=== PATIENT | male | born 1995 | race Caucasian/White ===

== ENCOUNTER 2020-04-14 13:58 | Emergency (ER) | payer SELFPAY ==
--- NOTE | 2020-04-14 14:05 | ED_ITS ---
HPI - Skin/Abscess/Foreign Bdy General: Chief complaint: Skin/Abscess/Foreign Body Stated complaint: rash Time Seen by Provider: 04/14/20 14:05 Source: patient Mode of arrival: ambulatory Limitations: no limitations History of Present Illness: HPI narrative: Patient comes in for rash to hands and feet. Reports bumps that are fluid-filled. Patient appears well. Patient denies any contact to abnormal grasses weeds or substances. Patient appears in no pain MD complaint: rash Review of Systems 2 General: Reports: 10 or more systems reviewed and unremarkable except in HPI and below Skin/Breast: Reports: rash and pruritus PFS ED PFSH: Social History (Updated 01/12/20 @ 13:56 by Sanjay Hanna LPN) Smoking and tobacco status: current every day smoker pipe Years smoked pipe: 5 Pipe Details: 100 / week Quit status (tobacco): has tried quititng Number of times tried to quit tobacco: 0 Second hand smoke exposure: Yes Smoking risk assessment/counseling performed?: Yes Tobacco counseling given: counseling >3 minutes Physical Exam Const: COMMON NORMALS: no acute distress and patient oriented x3 GENERAL APPEARANCE: cooperative HENMT: COMMON NORMALS: normocephalic and Normal external nose present HEAD & SCALP: normal to inspection and normocephalic NOSE: Normal external nose present Eye: GENERAL EYE: appearance normal, both eyes and all related structures Neck/C-Spine: COMMON NORMALS: full ROM Chest: COMMONS NORMALS: normal inspection of the chest Resp: COMMON NORMALS: normal respiratory effort EFFORT & INSPECTION: Yes able to speak in complete sentences Cardio: COMMON NORMALS: regular rate and regular rhythm RATE: regular rate RHYTHM: regular rhythm GI: COMMON NORMALS: non-tender Back/Pelvis: COMMON NORMALS: thoracic and lumbar spine normal to inspection Extremity: COMMON NORMALS: normal to inspection Neuro: COMMON NORMALS: patient oriented x3 and moves all extremities Psych: COMMON NORMALS: mental status grossly normal and cooperative Skin: NARRATIVE SKIN EXAM: Small vesicle-like rash noted to the webbing and digits of the hand, patient reports similar lesions to the feet. Course Vital Signs: Vital signs: Vital Signs Temperature 98.5 F 04/14/20 14:10 Pulse Rate 104 H 04/14/20 14:10 Respiratory Rate 18 04/14/20 14:10 Blood Pressure 122/91 04/14/20 14:10 Pulse Oximetry 96 04/14/20 14:10 MDM - Skin/Abscess/Foreign Bdy MDM Narrative: Medical decision making narrative: Patient comes in today for complaints of itching and vesicular lesions to the hands and feet. Exam otherwise is normal. Differential diagnosis includes contact dermatitis, dyshidrosis eczema, herpes zoster, herpes simplex. Exam and history gives us the diagnosis for dyshidrosis eczema. Reviewed exam with patient with recommendations for treatment. Patient reported understanding of care plan and need for follow-up. Discharge Plan Discharge Patient Disposition: Home, Self-Care Clinical Impression: Dyshidrosis [pompholyx] Condition: Stable Prescriptions: New triamcinolone acetonide 0.1 % cream 1 applic TOPICAL BID Qty: 80 RF: 0 No Action risperidone [Risperdal] 1 mg tablet 1 mg PO DAILY Qty: 30 RF: 1 Discharge Orders: Discharge Order (Routine); Ordered 04/14/20 Ordered By: Drake Viveros Discharge Diet: Usual diet Discharge Activity: Increase activity as tolerated Patient Instructions: Eczema (ED) Activity Restrictions/Additional Instructions: Use steroid cream twice a day until resolution of symptoms. Drink plenty of water. You may use Benadryl as needed for itching. Follow-up with primary care in 1 week for recheck. Return to the ER for high fever or worsening symptoms. Coding Level of Care Code ED Hole Puncher Strap for Gisell Fwyon Exam Comprehensive
[2020-04-14 14:10] VITALS: BP 122/91; PULSE 104; RESP 18; TEMP 36.9; O2SAT 96; BMI 28.0
[2020-04-14 14:46] VITALS: BP 126/80; PULSE 105; RESP 16; O2SAT 96
== END 2020-04-14 14:50 | disposition home or self-care (01) ==
LOC: ER 15:08
PROVIDERS: Emergency Provider Nurse Practitioner Family
DX: L30.1 Dyshidrosis [pompholyx] (principal); F17.210 Nicotine dependence, cigarettes, uncomplicated
CPT/HCPCS: 12345; 99282

== ENCOUNTER 2020-05-08 12:57 | Emergency (ER) | payer SELFPAY ==
[2020-05-08 12:59] VITALS: BP 131/90; PULSE 117; RESP 18; TEMP 36.3; O2SAT 97; BMI 28.0
--- NOTE | 2020-05-08 13:09 | W.ED.SKABFB ---
HPI - Skin/Abscess/Foreign Bdy General: Chief complaint: Skin/Abscess/Foreign Body Stated complaint: possible spider bite Time Seen by Provider: 05/08/20 13:03 History of Present Illness: HPI narrative: Redness left elbow 1 day MD complaint: insect bite/sting Onset (ago): day(s) Tetanus up to date: yes Location: LUE Severity: mild Associated symptoms: Deny chills, fever(s), nausea or vomiting Review of Systems Const: Denies: fever(s), chills or body aches Eyes: Denies: change in vision or blurry vision ENMT: Denies: throat pain or nasal congestion Card: Denies: chest pain or dyspnea on exertion Resp: Denies: dyspnea, productive cough or non-productive cough GI: Denies: abdominal pain, nausea or vomiting : Denies: difficulty urinating Musc: Denies: extremity pain Skin/Breast: Reports: erythema; Denies: rash Neuro: Denies: headache(s) Psych: Denies: anxiety or depression [place]ato/Lymph: Denies: easy bruising PFS ED PFSH: Social History (Updated 01/12/20 @ 13:56 by Sanjay Hanna LPN) Smoking and tobacco status: current every day smoker pipe Years smoked pipe: 5 Pipe Details: 100 / week Quit status (tobacco): has tried quititng Number of times tried to quit tobacco: 0 Second hand smoke exposure: Yes Smoking risk assessment/counseling performed?: Yes Tobacco counseling given: counseling >3 minutes Physical Exam Const: COMMON NORMALS: no acute distress, average body habitus and patient oriented x3 HENMT: COMMON NORMALS: normocephalic HEAD & SCALP: normal to inspection and normocephalic FACE & SINUS: normal facial exam Eye: COMMON NORMALS: conjunctivae normal GENERAL EYE: appearance normal, both eyes and all related structures CONJUNCTIVA: Yes conjunctivae normal Neck/C-Spine: COMMON NORMALS: no JVD Chest: COMMONS NORMALS: normal inspection of the chest Resp: COMMON NORMALS: normal respiratory effort and clear to auscultation bilaterally AUSCULTATION: clear to auscultation bilaterally Cardio: COMMON NORMALS: no JVD, regular rate and regular rhythm RATE: regular rate RHYTHM: regular rhythm GI: COMMON NORMALS: Normal to inspection, nondistended, normoactive bowel sounds present Extremity: COMMON NORMALS: normal to inspection and full ROM NARRATIVE EXTREMITY EXAM: Has erythema to left elbow and a central area that is draining a little bit Neuro: COMMON NORMALS: patient oriented x3 Course Vital Signs: Vital signs: Vital Signs Temperature 97.3 F L 05/08/20 12:59 Pulse Rate 117 H 05/08/20 12:59 Respiratory Rate 18 05/08/20 12:59 Blood Pressure 131/90 05/08/20 12:59 Pulse Oximetry 97 05/08/20 12:59 Discharge Plan Discharge Prescriptions: No Action risperidone [Risperdal] 1 mg tablet 1 mg PO DAILY Qty: 30 RF: 1 triamcinolone acetonide 0.1 % cream 1 applic TOPICAL BID Qty: 80 RF: 0 Coding Level of Care Code ED Event Planning Manager for Gisell Mabry
[2020-05-08 13:30] VITALS: BP 131/90; PULSE 112; RESP 16; O2SAT 98
== END 2020-05-08 13:31 | disposition home or self-care (01) ==
PROVIDERS: Emergency Provider Nurse Practitioner Family
DX: T63.301A Toxic effect of unspecified spider venom, accidental (unintentional), initial encounter (principal); F17.290 Nicotine dependence, other tobacco product, uncomplicated
CPT/HCPCS: 12345; 99281

== ENCOUNTER → 2022-08-08 16:23 | Outpatient (BNVA) | payer MEDICAID, SELFPAY | PROVIDERS: Visit Provider Family Medicine | DX: M91.10 Juvenile osteochondrosis of head of femur [Legg-Calve-Perthes], unspecified leg (principal); M25.352 Other instability, left hip; M21.952 Unspecified acquired deformity of left thigh; F84.0 Autistic disorder; Z76.89 Persons encountering health services in other specified circumstances | CPT/HCPCS: 80053; 80061; 85025 ==

== ENCOUNTER 2022-09-28 05:51 | Emergency (ER) | payer MEDICAID, SELFPAY ==
[2022-09-28] VITALS (7 sets, daily range): BP systolic 125–135; BP diastolic 74–86; PULSE 120–137; RESP 18–30; TEMP 38.1–38.7; O2SAT 92–93; BMI 31.4
--- NOTE | 2022-09-28 06:20 | XRR_ITS ---
PROCEDURE INFORMATION: Exam: XR Chest Exam date and time: 09/28/2022 7:36 AM Age: 27 years old Clinical indication: Cough; Additional info: Dyspnea/cough TECHNIQUE: Imaging protocol: Radiologic exam of the chest. Views: 1 view. Total images: 3 COMPARISON: CR XR chest 2V* [id number] 01/31/2018 5:22 PM FINDINGS: Lungs: Unremarkable. No consolidation. Pleural spaces: Unremarkable. No pleural effusion. No pneumothorax. Heart/Mediastinum: Unremarkable. No cardiomegaly. Bones/joints: Unremarkable. XR/XR chest 1V portable [id number] IMPRESSION: No acute findings.
--- NOTE | 2022-09-28 06:21 | W.ED.SOB ---
HPI - SOB/Dyspnea General: Chief Complaint: Shortness of Breath/Dyspnea Stated Complaint: body aches,coughing Time Seen by Provider: 09/28/22 05:59 Source: patient Mode of arrival: ambulatory History of Present Illness: HPI Narrative: 27-year-old male presents emergency room complaining of coughing shortness of breath congestion fever myalgia and body aches for the last couple of days. No diarrhea. He presents with a temp of 100.5 he is not taking anything for it. No history of any chronic respiratory illnesses. Patient is a smoker. MD elicited complaint: shortness of breath and cough Onset (ago): day(s) (2) Timing: constant Severity: mild Exacerbating factors: nothing Relieving factors: nothing Associated symptoms: Reports cough, fever(s), myalgias and nausea; Deny abdominal pain, chest congestion, chest pain, diaphoresis, dizziness, extremity pain, hemoptysis, lightheadedness, orthopnea, palpitations, paresthesias, polydipsia, polyuria, rash, sense of impending doom, syncope or vomiting Treatment prior to arrival: none Review of Systems Const: Reports: fever(s), chills, fatigue and malaise; Denies: diaphoresis ENMT: Denies: throat pain, ear or mastoid pain, nasal discharge or nasal congestion Card: Denies: chest pain, palpitations, lightheadedness, syncope or orthopnea Resp: Reports: dyspnea and non-productive cough; Denies: hemoptysis or chest congestion GI: Reports: nausea; Denies: abdominal pain or vomiting : Denies: flank pain, dysuria, urinary frequency or urinary urgency Musc: Denies: neck pain, back pain or extremity pain Skin/Breast: Denies: rash or pruritus Neuro: Reports: headache(s); Denies: dizziness Endo: Denies: polyuria or polydipsia PFSH ED PFSH: Medical History 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 Family History Grandfather CAD (coronary artery disease) Cancer Diabetes Mother Diabetes Lung disease Stroke Father Dementia Stroke Denies family history of Clotting disorder Hyperlipidemia Psychiatric illness Chronic kidney disease (CKD) Suicide Anesthesia complication Bleeding disorder Family history of premature coronary artery disease Hypertension Social History Smoking and tobacco status: never smoked Quit status (tobacco): has tried quititng Number of times tried to quit tobacco: 0 Second hand smoke exposure: Yes Smoking risk assessment/counseling performed?: Yes Tobacco counseling given: counseling >3 minutes Alcohol intake: current Alcohol intake frequency: holidays/special occasions only Alcohol type: beer Desire information about substance/drug rehabilitation?: No Last substance use date: 08/06/22 Adopted: No Caregiver/support person: No Lives independently: Yes Household members: spouse Housing: House Marital status: Number of children: 0 Highest education level completed: High School Graduate service: No Current occupational status: unemployed Current occupational exposures/hazards: No Pets and animals: Yes History of recent travel: No Sexually active: Yes Current gender identity: Male Special david needs: No Agree to transfusion: Yes Financial difficulty paying for basics: Hard Physical Exam Const: GENERAL APPEARANCE: cooperative and comfortable ORIENTATION/CONSCIOUSNESS: Yes awake, Yes oriented to person, Yes oriented to place and Yes oriented to time HENMT: COMMON NORMALS: normocephalic, atraumatic and hearing grossly normal bilaterally HEAD & SCALP: normocephalic and atraumatic Resp: COMMON NORMALS: normal respiratory effort, No retractions, No use of accessory muscles and clear to auscultation bilaterally AUSCULTATION: clear to auscultation bilaterally Cardio: COMMON NORMALS: regular rate, regular rhythm and No murmurs present (Cardio) RATE: regular rate RHYTHM: regular rhythm GI: COMMON NORMALS: Soft to palpation and No hepatosplenomegaly present AUSCULTATION: Yes normoactive bowel sounds PALPATION: Yes Soft to palpation, No Tenderness to palpation present (GI), No Guarding due to palpation present (GI) and Yes No hepatosplenomegaly present Extremity: COMMON NORMALS: normal to inspection, capillary refill normal, no clubbing, cyanosis or edema, no calf tenderness and no pedal edema Neuro: SENSORIUM/ORIENTATION: Yes oriented to person, Yes oriented to place and Yes oriented to time Skin: COMMON NORMALS: no rashes or lesions noted GENERAL SKIN EXAM: no rashes or lesions noted Course Vital Signs: Vital signs: Vital Signs Temperature 101.7 F H 09/28/22 07:28 Pulse Rate 130 H 09/28/22 08:05 Respiratory Rate 18 09/28/22 08:03 Blood Pressure 125/74 09/28/22 06:33 Pulse Oximetry 92 09/28/22 08:03 Oxygen Delivery Me thod 09/28/22 08:03 Oxygen Flow Rate 2 09/28/22 07:50 MDM - SOB/Dyspnea Medical Decision Making Influenza A. Patient is feeling somewhat better although fever is still present. Responded well to nebulizers as lactated up but he is up but he is drinking well there is no signs of secondary infection chest x-ray is unremarkable discharge home increase fluids Tylenol and I Profen as needed recheck fizzing worsening or changes symptoms. He was initially tachypneic but that resolved after the treatment. Medical Records I reviewed the patient's medical records. Lab Data I reviewed the patient's lab results. 09/28/22 06:35 09/28/22 06:35 Labs/Radiology: Radiology Impressions Chest X-Ray 09/28/22 06:20 IMPRESSION: No acute findings. Laboratory Results WBC 15.0 10^3/uL (4.0-10.0) H 09/28/22 06:35 RBC 5.41 10^6/uL (4.1-5.3) H 09/28/22 06:35 Hgb 16.1 g/dL (11.7-16.6) 09/28/22 06:35 Hct 47.4 % (42.0-52.0) 09/28/22 06:35 MCV 87.6 fl (80-94) 09/28/22 06:35 MCH 29.8 pg (28.0-34.0) 09/28/22 06:35 MCHC 34.0 g/dL (30.0-36.0) 09/28/22 06:35 RDW 12.1 % (12.1-15.1) 09/28/22 06:35 Plt Count 244 10^3/cmm (130-400) 09/28/22 06:35 MPV 11.7 fL (7.4-10.4) H 09/28/22 06:35 Neut % (Auto) 89.8 % 09/28/22 06:35 Lymph % (Auto) 3.1 % 09/28/22 06:35 [place] % (Auto) 6.1 % 09/28/22 06:35 Eos % (Auto) 0.1 % 09/28/22 06:35 Baso % (Auto) 0.4 % 09/28/22 06:35 Neut # (Auto) 13.52 10^3/uL (1.8-7.7) H 09/28/22 06:35 Lymph # (Auto) 0.5 10^3/uL (0.8-4.8) L 09/28/22 06:35 [place] # (Auto) 0.9 10^3/uL (0.2-0.9) 09/28/22 06:35 Eos # (Auto) 0.0 10^3/uL (0.0-0.8) 09/28/22 06:35 Baso # (Auto) 0.1 10^3/uL (0.0-0.1) 09/28/22 06:35 Nucleated RBC % (auto) 0 % 09/28/22 06:35 Nucleated RBCs # 0.0 /100WBC 09/28/22 06:35 Sodium 134 mmol/L (136-145) L 09/28/22 06:35 Potassium 3.4 mmol/L (3.5-5.1) L 09/28/22 06:35 Chloride 96 mmol/L (98-107) L 09/28/22 06:35 Carbon Dioxide 24 mmol/L (22-29) 09/28/22 06:35 Anion Gap 17.4 (5-19) 09/28/22 06:35 BUN 6 mg/dL (6-20) 09/28/22 06:35 Creatinine 0.8 mg/dL (0.7-1.2) 09/28/22 06:35 GFR Calculation 116.0 mL/min (90-130) 09/28/22 06:35 Glucose 116 mg/dL (65-115) H 09/28/22 06:35 Calculated Osmolality 277 mOsm/kg (285-295) L 09/28/22 06:35 Lactic Acid 3.3 mmol/L (0.5-2.2) H 09/28/22 06:35 Calcium 9.4 mg/dL (8.5-10.5) 09/28/22 06:35 Nasal Influ A H1 2008 PCR Cancelled 09/28/22 08:41 Coronavirus 229E (PCR) Not detected (NOT DETECT) 09/28/22 06:22 Influenza A (H1) PCR Cancelled 09/28/22 08:41 Influenza A (H3) PCR Cancelled 09/28/22 08:41 Influenza Type A Ag positive (Negative) 09/28/22 06:22 Influenza Type A (PCR) Cancelled 09/28/22 08:41 Influenza Type B Ag negative (Negative) 09/28/22 06:22 Influenza Type B (PCR) Cancelled 09/28/22 08:41 SARS-CoV-2 (PCR) Not detected (NOT DETECT) 09/28/22 06:22 Discharge Plan Discharge Patient Disposition: Home Clinical Impression: Influenza A Condition: Stable Prescriptions: New albuterol sulfate 90 mcg/actuation HFA aerosol inhaler 2 inh INHALATION Q4H PRN (Reason: shortness of breath or wheezing) Qty: 18 0RF Discharge Orders: Discharge ED (Routine); Ordered 09/28/22 Ordered By: Javier Infante Discharge Diet: Usual diet Discharge Activity: Increase activity as tolerated Patient Instructions: Influenza (ED), Opioid Safety, Pain Management Activity Restrictions/Additional Instructions: You were seen today with upper respiratory infection. You were tested positive for influenza. You are outside the window where antivirals can be helpful. Tylenol and ibuprofen for fever use albuterol to help with cough and wheezing and shortness of breath. Coding Level of Care Code ED Captain Fishing Vessel for Gisell Fwd Exam Detailed
[2022-09-28] MEDS: acetaminophen 500 mg Tablet 1000 MG PO (06:25)
[2022-09-28 06:54] LABS: Basophils # 0.1 10^3/uL (0.0-0.1); Basophils % 0.4 %; Eosinophils % 0.1 %; Hematocrit 47.4 % (42.0-52.0); Hemoglobin 16.1 g/dL (11.7-16.6); Lymphocytes # 0.5 10^3/uL (0.8-4.8); Lymphocytes % 3.1 %; Mean Corpuscular Hemoglobin 29.8 pg (28.0-34.0); Mean Corpuscular Volume 87.6 fl (80-94); Mean Platelet Volume 11.7 fL (7.4-10.4); Monocytes # 0.9 10^3/uL (0.2-0.9); Monocytes % 6.1 %; Neutrophils # 13.52 10^3/uL (1.8-7.7); Neutrophils % 89.8 %; Nucleated Red Blood Cells % 0 %; Platelet Count 244 10^3/cmm (130-400); Red Blood Count 5.41 10^6/uL (4.1-5.3); Red Cell Distribution Width 12.1 % (12.1-15.1)
[2022-09-28 07:04] LABS: Influenza A by IFA positive (Negative); Influenza B by IFA negative (Negative)
[2022-09-28 07:08] LABS: Anion Gap 17.4 (5-19); Blood Urea Nitrogen 6 mg/dL (6-20); Calcium 9.4 mg/dL (8.5-10.5); Carbon Dioxide 24 mmol/L (22-29); Chloride 96 mmol/L (98-107); Glucose 116 mg/dL (65-115); Osmolality Calculated 277 mOsm/kg (285-295); Potassium 3.4 mmol/L (3.5-5.1); Sodium 134 mmol/L (136-145)
[2022-09-28 07:09] LABS: Lactic Sepsis W/Reflex 3.3 mmol/L (0.5-2.2)
[2022-09-28] MEDS: albuterol 8 gm MDI 2 PUFF INHALATION (07:24)
[2022-09-28] MEDS: ibuprofen 800 mg tablet PO (07:35)
[2022-09-28] MEDS: ipratropium-albuterol 3 mL Neb INHALATION (08:02)
[2022-09-28 08:28] LABS: Adenovirus Not Detected (NOT DETECT); Chlamydia Pneumoniae Not Detected (NOT DETECT); Coronavirus 229E,HKU1,NL63,OC4 Not Detected (NOT DETECT); Human Metapneumovirus Not Detected (NOT DETECT); Human Rhinovirus/Enterovirus Not Detected (NOT DETECT); Influenza A Detected (NOT DETECT); Influenza A H1 Not Detected (NOT DETECT); Influenza A H1-2009 Detected (NOT DETECT); Influenza A H3 Not Detected (NOT DETECT); Influenza B Not Detected (NOT DETECT); Mycoplasma Pneumoniae Not Detected (NOT DETECT); Parainfluenza Virus Type 1 Not Detected (NOT DETECT); Parainfluenza Virus Type 2 Not Detected (NOT DETECT); Parainfluenza Virus Type 3 Not Detected (NOT DETECT); Parainfluenza Virus Type 4 Not Detected (NOT DETECT); Respiratory Syncytial Virus A Not Detected (NOT DETECT); Respiratory Syncytial Virus B Not Detected (NOT DETECT); SARS-COV-2 Not Detected (NOT DETECT)
[2022-09-28 08:36] LABS: Reflex Lactate Order REFLEX LACTIC ORDERD
== END 2022-09-28 08:27 | disposition home or self-care (01) ==
PROVIDERS: Emergency Provider Family Medicine
DX: J10.1 Influenza due to other identified influenza virus with other respiratory manifestations (principal); Z20.822 Contact with and (suspected) exposure to COVID-19; Z77.22 Contact with and (suspected) exposure to environmental tobacco smoke (acute) (chronic)
CPT/HCPCS: 36415; 71045; 80048; 83605; 85025; 87040; 87635; 87804; 94640; 99284; J3535

== ENCOUNTER → 2023-08-13 12:00 | Outpatient (BNVA) | payer MEDICAID, SELFPAY | PROVIDERS: PCP Family Medicine; Visit Provider Family Medicine | DX: R73.9 Hyperglycemia, unspecified (principal) | CPT/HCPCS: 80053; 80061; 83036; 84443; 85025 ==